=== PATIENT | male | born 1975 | race Caucasian/White ===

== ENCOUNTER 2016-07-18 01:43 | Inpatient (IN) | payer SELFPAY ==
[2016-07-18 09:24] LABS: BASO % 0.3 % (0-2); EOS % 0.7 % (0-7); EOSINOPHIL ABSOLUTE COUNT 0.1 tho/cmm (0.0-0.7); HGB-HEMOGLOBIN 13.3 gm/dl (13.5-17.0); IMMATURE GRANULOCYTES ABSOLUTE 0.02 tho/cmm (0-0.03); IMMATURE GRANULOCYTES PERCENT 0.2 % (0-0.3); LYMPH % 17.9 % (20-45); LYMPH ABSOLUTE COUNT 2.1 tho/cmm (0.8-4.5); MCHC MEAN CORPUSCULAR HGB CONC 33.3 % (32.0-36.0); MCV (MEAN CELL VOLUME) 90.1 fl (82.0-96.0); MEAN PLATELET VOLUME 10.6 cmc (9.4-12.4); MONO % 8.3 % (0-12); NEUTROPHIL ABSOLUTE COUNT 8.5 tho/cmm (1.6-8.0); NEUTROPHIL-AUTOMATED 8.5 tho/cmm (1.6-8.0); NEUTROPHILS % 72.6 % (40-80); PLATELET COUNT 249 tho/cmm (150-450); RED BLOOD COUNT 4.44 mil/cmm (4.40-5.70); RED CELL DISTRIBUTION WIDTH 12.7 % (12.4-16.4); WHITE BLOOD COUNT 11.8 tho/cmm (4.0-10.0)
[2016-07-18 09:45] LABS: ANION GAP 11 mmol/L (0-20); BLOOD UREA NITROGEN 10 mg/dl (6-24); CALCIUM 8.3 mg/dl (8.5-10.5); CARBON DIOXIDE-VENOUS 29 mmol/L (22-32); CHLORIDE 105 mmol/l (96-110); CREATININE 0.76 mg/dl (0.60-1.30); GLUCOSE 122 mg/dL (70-110); MAGNESIUM 1.9 mg/dl (1.3-2.6); PHOSPHOROUS 3.7 mg/dl (2.5-4.9); POTASSIUM 3.7 mmol/L (3.7-5.1); SODIUM 141 mmol/L (135-145); eGFR VALUE FOR BLACK >60 mL/Min
[2016-07-18 16:34] LABS: BASO % 0.2 % (0-2); EOS % 0.8 % (0-7); EOSINOPHIL ABSOLUTE COUNT 0.1 tho/cmm (0.0-0.7); HCT-HEMATOCRIT 41.8 % (36.0-53.5); HGB-HEMOGLOBIN 14.1 gm/dl (13.5-17.0); IMMATURE GRANULOCYTES ABSOLUTE 0.02 tho/cmm (0-0.03); IMMATURE GRANULOCYTES PERCENT 0.2 % (0-0.3); LYMPH % 20.4 % (20-45); MCH (MEAN CORPUSCULAR HGB) 30.5 pg (28.0-32.0); MCHC MEAN CORPUSCULAR HGB CONC 33.7 % (32.0-36.0); MCV (MEAN CELL VOLUME) 90.5 fl (82.0-96.0); MEAN PLATELET VOLUME 10.6 cmc (9.4-12.4); MONO % 8.6 % (0-12); MONOCYTE ABSOLUTE COUNT 0.8 tho/cmm (0.0-1.2); NEUTROPHIL ABSOLUTE COUNT 6.7 tho/cmm (1.6-8.0); NEUTROPHIL-AUTOMATED 6.7 tho/cmm (1.6-8.0); NEUTROPHILS % 69.8 % (40-80); PLATELET COUNT 247 tho/cmm (150-450); RED BLOOD COUNT 4.62 mil/cmm (4.40-5.70); WHITE BLOOD COUNT 9.6 tho/cmm (4.0-10.0)
[2016-07-18 16:40] LABS: PROTHROMBIN TIME 12.1 SECONDS (9.0-13.6)
[2016-07-18 16:54] LABS: ALBUMIN 3.3 g/dl (3.5-5.0); ALKALINE PHOSPHATASE 118 U/L (33-138); ALT/SGPT 36 U/L (12-78); ANION GAP 9 mmol/L (0-20); AST/SGOT 27 U/L (10-40); BILIRUBIN,TOTAL 0.6 mg/dl (0.0-1.5); BLOOD UREA NITROGEN 9 mg/dl (6-24); CALCIUM 8.3 mg/dl (8.5-10.5); CARBON DIOXIDE-VENOUS 29 mmol/L (22-32); CHLORIDE 108 mmol/l (96-110); CREATININE 0.66 mg/dl (0.60-1.30); GLUCOSE 92 mg/dL (70-110); MAGNESIUM 2.2 mg/dl (1.3-2.6); POTASSIUM 3.8 mmol/L (3.7-5.1); SODIUM 142 mmol/L (135-145); eGFR VALUE FOR BLACK >90 mL/Min
[2016-07-18 16:59] LABS: TSH-THYROID STIMULATING HORM. 1.16 uIU/ml (0.40-3.80)
--- NOTE | 2016-07-18 17:50 | NUR ---
07/18/16 1700 PATIENT WANTS TO LEAVE AMA. HE IS PULLING OFF HIS DRESSINGS AND PORCINE. HE STATES HE CAN TAKE CARE OF HIMSELF AT HOME AND THE BURN WILL HEAL ON THEIR OWN. August, RN CAME AND EDUCATED THE PATIENT ABOUT DRESSING CHANGES AT HOME, MEDICATION MANAGEMENT, PAIN CONTROL AND INFECTION RISKS. HIGH RISK OF INFECTION ASSOCIATED WITH 20% OF DOUGLAS DISCUSSED, SEPSIS, AND WERE ALL DISCUSSED WITH THE PATIENT. THE PATIENT INSISTS ON LEAVING AMA. [employer] DISCUSSED WELL IF PATIENT TO LEAVE AMA, HE MAY RECEIVE A BILL. PATIENT EXPRESSED HIS UNDERSTAND OF THE RISKS AND STILL WISHES TO SIGN OUT A TONIGHT. HIS IS ON HER WAY AND SHOULD BE HERE AROUND 1999. PROSPER AND DR HINTON AWARE OF SITUATION.
[2016-07-18] MEDS ORDERED: ZOLOFT100 M1 PO (19:08)
[2016-07-18] MEDS ORDERED: NEURONTIN100 M1 PO (19:08)
[2016-07-18] MEDS ORDERED: ADDERALL XR 3030 M1 PO (19:08)
[2016-07-19 07:42] LABS: HGB-HEMOGLOBIN 13.9 gm/dl (13.5-17.0); PLATELET COUNT 232 tho/cmm (150-450)
[2016-07-19 07:49] LABS: INR 1.1 INR (0.9-1.1); PROTHROMBIN TIME 12.8 SECONDS (9.0-13.6)
[2016-07-19 07:55] LABS: CREATININE 0.71 mg/dl (0.60-1.30); eGFR VALUE FOR BLACK >90 mL/Min
[2016-07-19] MEDS ORDERED: HYDROCODON-ACE1 EA16 PO (10:51)
== END 2016-07-19 16:30 | DRG 928 ==
LOC: BURN 01:43
PROVIDERS: Surgery; ADMIT Surgery
PROC: 0HR1XK4 Replacement of Face Skin with Nonautologous Tissue Substitute, Partial Thickness, External Approach (ICD-10-PCS; principal; 2016-07-18)
PROC: 0HR7XK4 Replacement of Abdomen Skin with Nonautologous Tissue Substitute, Partial Thickness, External Approach (ICD-10-PCS; 2016-07-18)
DX: T20.311A Burn of third degree of right ear [any part, except ear drum], initial encounter (principal); T31.20 Burns involving 20-29% of body surface with 0% to 9% third degree burns; T21.32XA Burn of third degree of abdominal wall, initial encounter; X03.0XXA Exposure to flames in controlled fire, not in building or structure, initial encounter; F43.10 Post-traumatic stress disorder, unspecified; F32.9 Major depressive disorder, single episode, unspecified; F41.9 Anxiety disorder, unspecified; F17.210 Nicotine dependence, cigarettes, uncomplicated
CPT/HCPCS: J1650; J2250; J3010